=== PATIENT | female | born 1965 | race Caucasian/White ===

== ENCOUNTER 2022-06-02 12:27 | Outpatient (CLI) | payer OTHER ==
--- NOTE | 2022-06-02 15:27 | XRAY Report ---
PROCEDURE: Finger(s) RT INDICATIONS: RIGHT FINGER PAIN TECHNIQUE: PA hand, 2 views of the middle finger acquired. COMPARISON: None. FINDINGS: Bones: There is a minimally displaced fracture of the dorsal aspect of the third distal phalanx exten ding into the distal interphalangeal joint, which is only seen on lateral view. No suspicious bony le sions. Soft tissues: No suspicious soft tissue calcifications. IMPRESSION: Minimally displaced intra-articular fracture at the dorsal base of the third distal phalanx. Reviewed by: Andres Matthews MD on 06/02/2022 2:26 PM [facility]AY Approved by: Andres Matthews MD on 06/02/2022 2:26 PM ABHAY Station ID: [id number]
== END 2022-06-02 12:28 | disposition home or self-care (01) ==
LOC: DI 12:27
PROVIDERS: ATTEND Physician Assistant
DX: S62.632A Displaced fracture of distal phalanx of right middle finger, initial encounter for closed fracture (principal)